=== PATIENT | male | born 1970 | race Caucasian/White ===

== ENCOUNTER 2018-01-11 08:26 | Emergency (ER) | payer MEDICAID ==
[~2018-01-11] VITALS: Ht 167.6 cm; Wt 66.8 kg
[2018-01-11 10:36] VITALS: BP 123/81
== END 2018-01-11 10:39 | disposition home or self-care (01) ==
LOC: ER 08:26
DX: M25.461 Effusion, right knee (principal); M25.532 Pain in left wrist; F17.200 Nicotine dependence, unspecified, uncomplicated
CPT/HCPCS: 29125; 73110; 73564; 99284